=== PATIENT | female | born 1965 | race African-American/Black ===

== ENCOUNTER 2017-07-11 05:49 | Observation (INO) | payer SELFPAY ==
[~2017-07-11] VITALS: Ht 162.6 cm; Wt 98.6 kg
[2017-07-11] MEDS ORDERED: NORVASC10 M1 PO (06:21)
[2017-07-11] MEDS ORDERED: LISINOPRIL10 MG PO (06:21)
[2017-07-11] MEDS ORDERED: ASPIRIN81 MG PO (06:22)
--- NOTE | 2017-07-11 06:22 | NUR ---
PATIENT WALKED BACK TO ROOM 9 AFTER INITIAL TRAIGE AND WEIGHT OBTAINED. 12 LEAD EKG DONE AND SHE WAS EVALUATED BY DR. CLIFFORD. MEDRECONCILIATION IS INCOMPLETE - PATIENT CAN NOT RECALL HER OTHER MEDS AT THIS TIME. IS NOT A GODD HISTORIAN.
--- NOTE | 2017-07-11 06:23 | NUR ---
PT. WITH C/O MIDSTERNAL CP STARTING YESTERDAY. PT. STATES HER CP IS AN 8 ON A SCALE OF 1-10. SKIN WARM AND DRY TO TOUCH, COLOR WNL, RESP. EVEN AND UNLABORED. BILATERAL LUNG JAMA ARE CTA,, NO EDEMA NOTED TO BLE.
--- NOTE | 2017-07-11 06:48 | NUR ---
PT. STATES HER CP IS AN 8. PT. PLAYING GAME ON HER PHONE AND ASKING FOR A DRINK OF HOT CHOCOLATE.
--- NOTE | 2017-07-11 06:49 | NUR ---
REPORT GIVEN TO CHARMAINE MCFADDEN.
[2017-07-11 06:50] LABS: HEMATOCRIT 41.9 % (37.0-47.0); HEMOGLOBIN 13.4 g/dl (12.0-16.0); IMMATURE GRANULOCYTES 0.3 % (0.0-1.0); NEUT# 8.79 thou/uL (2.00-7.15); RED BLOOD COUNT 5.37 mill/uL (4.20-5.60)
[2017-07-11 07:04] LABS: ALBUMIN 4.7 g/dL (3.2-5.0); ALKALINE PHOSPHATASE 99 u/l (38-126); ANION GAP 18 (6-22 (CALC)); BILIRUBIN, TOTAL 1.1 mg/dL (0.0-1.4); BUN 13 mg/dL (7-17); BUN/CREATININE RATIO 14 (12-20 (CALC)); CALCIUM 9.5 mg/dL (8.4-10.2); CARBON DIOXIDE 24 mmol/l (22-30); CHLORIDE 104 mmol/l (95-108); CREATININE 0.9 mg/dL (0.5-1.0); GFR > 60 ML/MIN (>=60 (CALC)); GFR FOR AFR.AMER. > 60 ML/MIN (>=60 (CALC)); GLUCOSE 105 mg/dL (65-105); POTASSIUM 3.7 mmol/l (3.5-5.1); SGOT/AST 46 u/l (14-36); SGPT/ALT 43 u/l (9-52); SODIUM 143 mmol/l (137-146); TOTAL PROTEIN 8.4 g/dL (6.3-8.2)
--- NOTE | 2017-07-11 07:10 | NUR ---
INTRODUCED SELF TO PT. PT REPORTS 8/10 CHEST PAIN AT THIS TIME. UNABLE TO GET PATIENT OFF HER TELEPHONE TO DISCUSS CHEST PAIN. PATIENT TALKING ON PHONE, SPEECH CLEAR. NORMAL SINUS ON THE MONITOR. WILL CONTINUE TO MONITOR.
--- NOTE | 2017-07-11 07:40 | NUR ---
PATIENT AMBULATED TO THE BATHROOM TO OBTAIN URINE SAMPLE WITH A STEADY GAIT. PATIENT DENIES ANY CHEST PAIN OR SOB AT THIS TIME.
[2017-07-11 07:44] LABS: MYOGLOBIN 71 ng/mL (0 - 62)
--- NOTE | 2017-07-11 08:15 | NUR ---
MD AT BEDSIDE TO DISCUSS RESULTS AND PLAN FOR ADMISSION.
--- NOTE | 2017-07-11 08:17 | NUR ---
SBAR PRINTED TO FLOOR
[2017-07-11 08:29] LABS: URINE BILIRUBIN - DIPSTICK NEGATIVE (NEGATIVE); URINE BLOOD DIPSTICK NEGATIVE (NEGATIVE); URINE CLARITY CLEAR; URINE COLOR YELLOW; URINE GLUCOSE - DIPSTICK NEGATIVE (NEGATIVE); URINE KETONE 15 mg/dL (NEGATIVE); URINE LEUK ESTERASE NEGATIVE (NEGATIVE); URINE NITRITE - DIPSTICK NEGATIVE (Negative); URINE PROTEIN - DIPSTICK NEGATIVE (NEG-TRACE); URINE UROBILINOGEN - DIPSTICK 0.2 E.U./dL (0.2)
[2017-07-11 08:31] LABS: BARBITURATES NEGATIVE (NEGATIVE); COCAINE POSITIVE (NEGATIVE); METHADONE NEGATIVE (NEGATIVE); OXCYCODONE NEGATIVE (NEGATIVE); TETRAHYDROCANNABIONOL NEGATIVE (NEGATIVE); TRICYLIC ANTIDEPRESSANTS NEGATIVE (NEGATIVE)
--- NOTE | 2017-07-11 08:50 | NUR ---
Admission Note Report Given to: SBAR PRINTED TO FLOOR Transported by: Wheelchair X Stretcher Transported with: X Nurse Transporter X Patent IV [id number] X Lathmaker
--- NOTE | 2017-07-11 08:50 | NUR ---
PATIENT TRANSPORTED TO ICU ROOM 5 IN STABLE CONDITION.
--- NOTE | 2017-07-11 09:00 | NUR ---
PT ADMITTED TO ICU BED 5 MED SURG TELE OVERFLOW, PT ABLE TO STAND OFF STRETCHER AMBULATED TO SCALE THEN INTO BED WITH STEADY GAIT, STATES SHE CAME IN CAUSE SHE IS HAVING MIDTERNAL PAIN "ITS JUST AN ANNOYING PAIN THAT COMES AND GOES" SINCE YESTERDAY. VS STABLE, AFEBRILE, TELE READING SR RATE IN THE 60'S, LUNGS CLEAR WIHT NO SHORTNESS OF BREATH OR DISTRESS NOTED, ABD SOFT BS ACTIVE PT STATES LAST BM A FEW DAYS AGO STATES SHE HAS A PROBLEM WITH CONSTIPATION AND USUALLY HAS TO TAKE LAXATIVES, SAFETY MEASURES INTRODUCED, CALL SOLIS WITHIN REACH, WILL CONTINUE TO MONITOR.
--- NOTE | 2017-07-11 11:23 | NUR ---
PT RESING AT BREAKFAST PROVIDED W/O INCIDENT, SLEEPING MOSTLY SINCE ARRIVAL BEHAVIOR ON ARRIVAL SEEM JITTERY AND POOR ATTENTION SPAN HAD TO REPEAT QUESTIONS AT TIMES, BUT REPSONSES WERE APPROPRIATE, NO DISTRESS NTOED AND NO CHANGES ON TELE, EDUCATED REGARDING REPEAT LAB WORK, VERBALIZES UNDERSTANDING, WILL CONTINUE TO MONITOR.
[2017-07-11 12:00] VITALS: BP 110/65
--- NOTE | 2017-07-11 12:31 | NUR ---
lab at bedside for lab draw, pt continent of large formed BM and 300 ml cristina urine, provides own rolando care. Call ogden within reach
--- NOTE | 2017-07-11 13:44 | NUR ---
OOB TO BSC INDPENDENTLY, CONTINENT OF LARGE LOOSE STOOL, PROVIDES SELF DOUG CARE, BACK TO BED AND CALL SOLIS WITHIN REACH.
[2017-07-11 16:00] VITALS: BP 116/68
--- NOTE | 2017-07-11 16:26 | NUR ---
PT RESTING, HAVING LOOSE STOOLS X3 THUS FAR, COMPLAINS OF HEADACHE WILL MEDICATE ORDERED. CALL SOLIS WITHIN REACH.
--- NOTE | 2017-07-11 18:00 | NUR ---
SET UP ASSIST PROVIDED FOR PM MEAL
--- NOTE | 2017-07-11 19:49 | NUR ---
BEDSIDE REPORT RECEIVED FROM LESA DIA. PT RESTING IN BED SUPINE. C/O HEADACHE; STATES THAT TYLENOL WAS INEFFECTIVE. COLD COMPRESS APPLIED. RESPIRATIONS EVEN AND UNLABORED ON ROOM AIR. VS STABLE. DENIES ANY FURTHER CHEST PAIN. PLAN OF CARE DISCUSSED. PT ENCOURAGED TO VERBALIZE CONCERNS. CURRENTLY CONCERED ABOUT LUMPS ON HER POSTERIOR HEAD. NURSE OBSERVED 2 LUMPS WITH CRUSTING; UNOPENED. PT STATES THEY ARE PAINFUL TO TOUCH AND ARE NOT NEW. WILL CONTINUE TO MONITOR. SAFETY MEASURES IN PLACE. CALL LIGHT SYSTEM REVIEWED AND IN REACH.
[2017-07-11 19:59] VITALS: BP 100/62
[2017-07-11 23:55] VITALS: BP 107/65
--- NOTE | 2017-07-12 00:01 | NUR ---
PT ASLEEP AT THIS TIME. REMOVED GOWN AFTER C/O BEING HOT. TEMP ADJUSTED. STATES THAT HEADACHE IS BETTER. ATE 100% OF SNACK AND JUICE AT HS. PT OFFERS NO OTHER REQUESTS AT THIS TIME. CALL LIGHT WITHIN REACH.
[2017-07-12 04:39] VITALS: BP 109/73
--- NOTE | 2017-07-12 04:43 | NUR ---
PT AWAKENS EASILY. DENIES PAIN CURRENTLY. RESPIRATIONS EVEN AND UNLABORED. UP TO BSC AD SILVANO TO VOID. VS STABLE. NO ACUTE CHANGES IN CONDITION. SAFETY MEASURES IN PLACE. CALL LIGHT WITHIN REACH.
[2017-07-12 05:03] LABS: CHOLESTEROL HDL RATIO 2.5 (<4.4 (CALC))
--- NOTE | 2017-07-12 07:25 | NUR ---
PT AWAKE AND ALERT ADN TALKING ON PHONE, AM ASSESSMENT COMPLETED, SEE INTERVENTIONS, LUNGS CLEAR NO SHORTNESS OF BREATH OR DISTRESS NOTED, PT COMPLAINS OF PAIN BUT TO HEAD RELATED TO SORES/LUMPS ON HEAD, SMALL SCAB NOTED TO TOP OF HEAD NO REDNESS OR SWELLING NOTED, PT REPEATEDLY STATES THEY ARE VERY TENDER/SORE, SKIN OTHERWISE INTACT. SAFTETY MEASURES REINFORCED CALL SOLIS WITHIN REACH, WILL CONTINUE TO MONITOR
--- NOTE | 2017-07-12 07:55 | NUR ---
PT UNHAPPY WITH BREAKFAST REPEATEDLY TALKING ON PHONE COMPLAINING ABOUT EGG WHITES AND NO GARCIA ON HER TRAY ETC.. PT CALLED ROLO IN KITCHEN ABOUT DIET WELL, PT EDUCATED REGARDING REASON FOR DIETARY PROVISIONS, VERBALIZES UNDERSTANDING BUT INSISTS ON BREAKFAST DIET CHANGE, AWARE AND CHANGES NOTED AT PT INSISTANCE, WILL CONTINUE TO MONITOR
--- NOTE | 2017-07-12 08:32 | NUR ---
NEW DIET PROVIDED PT VERBALIZES THANKS, CONTINUES TALKING ON PHONE EVEN WHEN STAFF AT BEDSIDE FOR ASSESSMENTS OR CARE, WILL CONTINUE TO MONITOR
[2017-07-12 09:13] VITALS: BP 109/73
[2017-07-12] MEDS ORDERED: LIPITOR20 MG PO (09:21)
--- NOTE | 2017-07-12 09:34 | NUR ---
PT TALKING ON PHONE AWARE OF PLANNED D/C ALL QUESTIONS ANSWERED
--- NOTE | 2017-07-12 09:45 | NUR ---
PT DRESSED SELF WITH STEADU GAIT, FOR PLANNED D/C, ALL BELONGINGS WITH PATIENT, WHEEL CHAIR TRANSPORT AT BEDSIDE FOR D/C HOME ORDERED RETURN TO WORK PROVIDED TO PATIENT.
== END 2017-07-12 09:45 | disposition home or self-care (01) | DRG 313 ==
LOC: ED 05:49 → ED-I 08:07 → ED 08:17 → ICU 08:18
PROVIDERS: Emergency Medicine; ADMIT Internal Medicine; ATTEND Internal Medicine
DX: R07.9 Chest pain, unspecified (principal); I10 Essential (primary) hypertension; E78.5 Hyperlipidemia, unspecified; F14.90 Cocaine use, unspecified, uncomplicated; Z86.73 Personal history of transient ischemic attack (TIA), and cerebral infarction without residual deficits; Z87.891 Personal history of nicotine dependence

== ENCOUNTER 2017-12-20 00:45 | Emergency (ER) | payer BC ==
[~2017-12-20] VITALS: Ht 162.6 cm; Wt 100.0 kg
[~2017-12-20 00:45] MED LIST: ASPIRIN81 MG PO; LIPITOR20 MG PO; LISINOPRIL10 MG PO; NORVASC10 M1 PO
[2017-12-20] MEDS ORDERED: REFLUX MEDICATION (01:10)
[2017-12-20 01:27] LABS: HEMOGLOBIN 11.7 g/dl (12.0-16.0); IMMATURE GRANULOCYTES 0.5 % (0.0-1.0); MEAN CELL VOLUME 79.7 fL CALC (80.0-100.0); MEAN CORPUSCULAR HGB 24.5 pG CALC (26.0-32.0); MEAN CORPUSCULAR HGB CONC 30.8 g/L CALC (32.0-36.0); NEUT# 2.97 thou/uL (2.00-7.15); RED BLOOD COUNT 4.77 mill/uL (4.20-5.60); RED CELL DISTRI WIDTH 13.3 % (11.5-15.5)
--- NOTE | 2017-12-20 01:33 | NUR ---
breathing treatment given. breathing tech. for good deposition to the lungs.
[2017-12-20 01:39] LABS: ALBUMIN 3.8 g/dL (3.2-5.0); ALKALINE PHOSPHATASE 88 u/l (38-126); ANION GAP 14 (6-22 (CALC)); BILIRUBIN, TOTAL 0.2 mg/dL (0.0-1.4); BUN 12 mg/dL (7-17); BUN/CREATININE RATIO 21 (12-20 (CALC)); CARBON DIOXIDE 25 mmol/l (22-30); CHLORIDE 105 mmol/l (95-108); CREATININE 0.6 mg/dL (0.5-1.0); GFR > 60 ML/MIN (>=60 (CALC)); GFR FOR AFR.AMER. > 60 ML/MIN (>=60 (CALC)); POTASSIUM 3.7 mmol/l (3.5-5.1); SGOT/AST 27 u/l (14-36); SGPT/ALT 35 u/l (9-52); SODIUM 140 mmol/l (137-146); TOTAL PROTEIN 7.7 g/dL (6.3-8.2)
[2017-12-20] MEDS ORDERED: ZITHROMAX250 MG PO (02:09)
[2017-12-20] MEDS ORDERED: PROVENTIL108 MCG/AC IN (02:09)
[2017-12-20] MEDS ORDERED: MEDDOSEPAK PO (02:09)
[2017-12-20 02:25] VITALS: BP 122/67
[2017-12-25] MEDS ORDERED: OMEPRAZOLE20 MG PO (09:09)
== END 2017-12-20 02:28 | disposition home or self-care (01) | DRG 153 ==
LOC: ED 00:45
PROVIDERS: Emergency Medicine
DX: J06.9 Acute upper respiratory infection, unspecified (principal); I10 Essential (primary) hypertension; J40 Bronchitis, not specified as acute or chronic; R05 Cough; R07.89 Other chest pain; I25.2 Old myocardial infarction

== ENCOUNTER → 2018-10-11 | Outpatient (REF) | payer BC ==
[~2018-10-11] MED LIST changes: +MEDDOSEPAK PO; +OMEPRAZOLE20 MG PO; +PROVENTIL108 MCG/AC IN; +REFLUX MEDICATION; +ZITHROMAX250 MG PO
== END | disposition home or self-care (01) | DRG 951 ==
LOC: DI 06:58
PROVIDERS: ATTEND Physician Assistant Medical
DX: Z01.818 Encounter for other preprocedural examination (principal); Z01.811 Encounter for preprocedural respiratory examination

== ENCOUNTER 2019-12-31 01:22 | Emergency (ER) | payer BC ==
[2019-12-31 01:27] VITALS: BP 139/84
== END 2019-12-31 01:30 | disposition left against medical advice (07) | DRG 951 ==
LOC: ED 01:22 → LWOBS 01:28
DX: Z53.21 Procedure and treatment not carried out due to patient leaving prior to being seen by health care provider (principal)

== ENCOUNTER 2020-03-07 16:01 | Emergency (ER) | payer BC ==
[~2020-03-07] VITALS: Ht 162.6 cm; Wt 88.6 kg
[2020-03-07 17:12] LABS: URINE BILIRUBIN - DIPSTICK NEGATIVE (NEGATIVE); URINE BLOOD DIPSTICK NEGATIVE (NEGATIVE); URINE COLOR YELLOW; URINE GLUCOSE - DIPSTICK 500 mg/dL (NEGATIVE); URINE KETONE NEGATIVE (NEGATIVE); URINE LEUK ESTERASE NEGATIVE (NEGATIVE); URINE NITRITE - DIPSTICK NEGATIVE (Negative); URINE PH 6.5 (4.5-8.0); URINE PROTEIN - DIPSTICK TRACE mg/dL (NEG-TRACE); URINE UROBILINOGEN - DIPSTICK 0.2 E.U./dL (0.2)
[2020-03-07] MEDS ORDERED: ORPHENADRINE100 MG PO ×2 (19:23)
[2020-03-07] MEDS ORDERED: MEDDOSEPAK PO ×2 (19:23)
[2020-03-07 19:44] VITALS: BP 185/102
== END 2020-03-07 19:46 | disposition home or self-care (01) | DRG 552 ==
LOC: ED 16:01
DX: M54.5 Low back pain (principal); I10 Essential (primary) hypertension; F14.90 Cocaine use, unspecified, uncomplicated; Z86.73 Personal history of transient ischemic attack (TIA), and cerebral infarction without residual deficits

== ENCOUNTER 2020-03-14 15:21 | Emergency (ER) | payer BC ==
[~2020-03-14] VITALS: Ht 162.6 cm; Wt 84.1 kg
[~2020-03-14 15:21] MED LIST changes: +ORPHENADRINE100 MG PO
[2020-03-14 16:55] VITALS: BP 172/106
== END 2020-03-14 16:52 | disposition left against medical advice (07) | DRG 552 ==
LOC: ED 15:21
DX: M54.5 Low back pain (principal); M25.552 Pain in left hip; I10 Essential (primary) hypertension; Z86.73 Personal history of transient ischemic attack (TIA), and cerebral infarction without residual deficits; Z91.19 Patient's noncompliance with other medical treatment and regimen

== ENCOUNTER 2020-03-21 08:11 | Emergency (ER) | payer BC ==
[~2020-03-21] VITALS: Ht 162.6 cm; Wt 86.0 kg
[2020-03-21] MEDS ORDERED: ULTRAM50 MG PO (09:46)
[2020-03-21] MEDS ORDERED: MEDDOSEPAK PO (09:46)
[2020-03-21 09:56] VITALS: BP 178/99
== END 2020-03-21 09:57 | disposition home or self-care (01) | DRG 563 ==
LOC: ED 08:11
DX: S39.012A Strain of muscle, fascia and tendon of lower back, initial encounter (principal); M54.42 Lumbago with sciatica, left side; I10 Essential (primary) hypertension; X50.0XXA Overexertion from strenuous movement or load, initial encounter; Z86.73 Personal history of transient ischemic attack (TIA), and cerebral infarction without residual deficits

== ENCOUNTER 2021-01-16 04:32 | Emergency (ER) | payer SELFPAY ==
[~2021-01-16] VITALS: Ht 162.6 cm; Wt 91.0 kg
[~2021-01-16 04:32] MED LIST changes: +ULTRAM50 MG PO
[2021-01-16 05:13] LABS: HEMOGLOBIN 13.5 g/dl (12.0-16.0); IMMATURE GRANULOCYTES 0.3 % (0.0-5.0); MEAN CELL VOLUME 79.4 fL CALC (80.0-100.0); MEAN CORPUSCULAR HGB 24.2 pG CALC (26.0-32.0); MEAN CORPUSCULAR HGB CONC 30.5 g/dL CAL (32.0-36.0); NEUT# 9.5 thou/uL (2.00-7.15); RED BLOOD COUNT 5.58 mill/uL (4.20-5.60); RED CELL DISTRI WIDTH 13.7 % (11.5-15.5)
[2021-01-16 05:14] LABS: URINE BILIRUBIN - DIPSTICK NEGATIVE (NEGATIVE); URINE BLOOD DIPSTICK TRACE-INTACT (NEGATIVE); URINE COLOR YELLOW; URINE GLUCOSE - DIPSTICK 250 mg/dL (NEGATIVE); URINE KETONE NEGATIVE (NEGATIVE); URINE LEUK ESTERASE MODERATE (NEGATIVE); URINE NITRITE - DIPSTICK POSITIVE (Negative); URINE PROTEIN - DIPSTICK TRACE mg/dL (NEG-TRACE); URINE SPECIFIC GRAVITY >=1.030; URINE UROBILINOGEN - DIPSTICK 0.2 E.U./dL (0.2)
[2021-01-16 05:15] LABS: HEMATOCRIT 44.3 % (37.0-47.0)
[2021-01-16 05:26] LABS: URINE BACTERIA MANY hpf; URINE SQUAMOUS EPITHELIAL CELL FEW EPI/hpf (0-FEW); URINE WBC 50-100 WBC/hpf (0-5)
[2021-01-16 05:30] LABS: ACT PARTIAL THROMBO TIME 25.2 SECONDS (20.0-32.5); CREATININE 1.2 mg/dL (0.5-1.0); POTASSIUM 3.2 mmol/l (3.5-5.1); PROTHROMBIN TIME 10.5 SECONDS (9.0-12.5); TOTAL PROTEIN 9.1 g/dL (6.3-8.2)
[2021-01-16 05:32] LABS: ALBUMIN 4.7 g/dL (3.2-5.0); BILIRUBIN, TOTAL 0.6 mg/dL (0.0-1.4)
[2021-01-16 05:43] LABS: D-DIMER 0.3 mg/L (0.19-0.60)
[2021-01-16 05:58] VITALS: BP 218/110
== END 2021-01-16 05:45 | disposition left against medical advice (07) | DRG 313 ==
LOC: ED 04:32
PROVIDERS: Family Medicine
DX: R07.9 Chest pain, unspecified (principal); I10 Essential (primary) hypertension; T46.4X6A Underdosing of angiotensin-converting-enzyme inhibitors, initial encounter; Z91.128 Patient's intentional underdosing of medication regimen for other reason; Z86.73 Personal history of transient ischemic attack (TIA), and cerebral infarction without residual deficits

== ENCOUNTER 2022-12-07 06:26 | Emergency (ER) | payer OTHER ==
[~2022-12-07] VITALS: Ht 162.6 cm; Wt 93.0 kg
[2022-12-07 09:30] VITALS: BP 155/92
[2022-12-07 09:45] VITALS: BP 168/97
== END 2022-12-07 09:48 | disposition home or self-care (01) | DRG 556 ==
LOC: ED 06:26
DX: M79.605 Pain in left leg (principal); I10 Essential (primary) hypertension; Z86.73 Personal history of transient ischemic attack (TIA), and cerebral infarction without residual deficits